=== PATIENT | male | born 1995 | race Caucasian/White ===

== ENCOUNTER 2017-01-18 11:45 | Emergency (ER) | payer OTHER ==
[2017-01-18 11:58] VITALS: BP 160/79
== END 2017-01-18 13:38 | disposition home or self-care (01) ==
LOC: ED 11:45
DX: S39.012A Strain of muscle, fascia and tendon of lower back, initial encounter (principal); W20.8XXA Other cause of strike by thrown, projected or falling object, initial encounter; Y93.89 Activity, other specified; Y99.8 Other external cause status; Y92.89 Other specified places as the place of occurrence of the external cause

== ENCOUNTER 2019-05-30 09:38 | Emergency (ER) | payer OTHER ==
[~2019-05-30] VITALS: Ht 170.2 cm; Wt 117.9 kg
[2019-05-30 09:52] VITALS: Ht 170.2 cm; Wt 117.9 kg
[2019-05-30 10:59] VITALS: BP 141/69
== END 2019-05-30 11:04 | disposition home or self-care (01) ==
LOC: ED 09:38
DX: S50.362A Insect bite (nonvenomous) of left elbow, initial encounter (principal); L02.512 Cutaneous abscess of left hand; W57.XXXA Bitten or stung by nonvenomous insect and other nonvenomous arthropods, initial encounter; Y93.89 Activity, other specified; Y92.89 Other specified places as the place of occurrence of the external cause; Y99.8 Other external cause status

== ENCOUNTER 2019-06-01 12:47 | Emergency (ER) | payer OTHER ==
[~2019-06-01] VITALS: Ht 170.2 cm; Wt 118.6 kg
[2019-06-01 13:03] VITALS: BP 155/101; Ht 170.2 cm; Wt 118.6 kg
== END 2019-06-01 14:04 | disposition home or self-care (01) ==
LOC: ED 12:47
DX: L02.414 Cutaneous abscess of left upper limb (principal); Z48.01 Encounter for change or removal of surgical wound dressing